=== PATIENT | male | born 1940 | race Caucasian/White ===

== ENCOUNTER 2017-06-04 16:58 | Emergency (ER) | payer MEDICARE, BC ==
[2017-06-04] MEDS ORDERED: Lidocaine 1% PF 5 ML VIAL ONE (17:38)
== END 2017-06-04 18:10 | disposition home or self-care (01) ==
LOC: ERS 16:58
DX: S01.01XA Laceration without foreign body of scalp, initial encounter (principal); W22.09XA Striking against other stationary object, initial encounter
CPT/HCPCS: 12001; J2001

== ENCOUNTER 2017-06-09 12:25 | Emergency (ER) | payer MEDICARE, BC | END 2017-06-09 14:10 | disposition home or self-care (01) | LOC: ERS 12:25 | DX: S01.81XD Laceration without foreign body of other part of head, subsequent encounter (principal); S01.01XD Laceration without foreign body of scalp, subsequent encounter; X58.XXXD Exposure to other specified factors, subsequent encounter ==

== ENCOUNTER 2017-10-25 10:39 | Outpatient (CLI) | payer MEDICARE, BC ==
--- NOTE | 2017-11-02 19:48 | EKG ---
Test Reason : Blood Pressure : / mmHG Vent. Rate : 059 BPM Atrial Rate : 059 BPM P-R Int : 186 ms QRS Dur : 088 ms QT Int : 420 ms P-R-T Axes : 082 031 044 degrees QTc Int : 415 ms Sinus bradycardia Otherwise normal ECG When compared with ECG of 11-MAR-2012 12:51, No significant change was found Confirmed by NAVDEEP FUNES (2) on 11/02/2017 7:48:41 PM Referred By: HUSSEIN Confirmed By:NAVDEEP FUNES
== END 2017-10-25 10:40 | disposition home or self-care (01) ==
LOC: LABBT 10:39
PROVIDERS: ATTEND Orthopaedic Surgery Hand Surgery
DX: Z01.812 Encounter for preprocedural laboratory examination (principal); Z01.818 Encounter for other preprocedural examination; M72.0 Palmar fascial fibromatosis [Dupuytren]
CPT/HCPCS: 93005; 93010

== ENCOUNTER → 2017-10-26 | Day surgery (SDC) | payer MEDICARE, BC ==
[2017-10-25 10:58] VITALS: BMI 20.5
[~2017-10-26] MED LIST: Bacitracin Zinc Ointment 30 gm TUBE ONE; Betamet Acet/Betamet Na Ph 30 MG/5 ML VIAL ONE; Bupivacaine 0.5% 10 ML VIAL ONE; CEFAZOLIN/Water 2 GM/20 ML SYRINGE ONE; Midazolam HCl 2 mg/2 ml Vial ONE
--- NOTE | 2017-10-27 14:51 | OP ---
PREOPERATIVE DIAGNOSIS: Right small finger Dupuytren's nodule, 8 mm. POSTOPERATIVE DIAGNOSIS: Right small finger Dupuytren's nodule, 8 mm. PROCEDURES PERFORMED: 1. Excisional biopsy right small finger, Dupuytren's nodule. 2. Neuroplasty, radial and ulnar digital nerves, right small finger in the area of the nodule. COMPLICATIONS: None. INJECTABLE: 1. Yes, Celestone dripped over the area of the nodule was found over cord. 2. A 12 mL of 0.5% Marcaine block were given proximal to the incision on level of 1 cm approximately metacarpophalangeal joint small finger, both sides of radial and ulnar. SPECIMEN SENT: Yes, the biopsied lesion. ESTIMATED BLOOD LOSS: 5 mL. TOURNIQUET TIME: 10 minutes. INDICATION: The patient had marked pain with contact over nodule and lost 10 degrees of motion in te cristina of extension at the MP joint small finger. No other digit involved. Primary concern was about t he nodule, not the underlying cord. He chose anesthesia that would be Anesthesia standby with only V ersed and we had to block him copiously. DESCRIPTION OF PROCEDURE: After we performed timeout and determined that the block was intact, we barrow d finished prepping and draping, the limb was exsanguinated, tourniquet inflated to 250 mmHg pressure . We made a 4-cm incision, two distal and 2 proximal to the nodule, carried down through skin and mills bcutaneous tissue, performing neuroplasty proximal to the incision to identify the nerves to protect them. The radial and ulnar nerves were found and protected. We then shelled out the small portion o f the nodule going towards the small finger PIP joint, all of the cord proximal to the nodule identif ied and removed, then we finished the neuroplasty, took the nodule out without damage to nerves, and then released the tourniquet. We irrigated with normal saline and held pressure until we found elect rocautery. We then did not use electrocautery. We then closed the wound with 4-0 nylon in simple pattern. Bulky dressing was applied. The patient left the operating room with a bulky dressing, no splint, and no evidence of anesthetic or operative complications.
== END ==
LOC: SDC 11:26
PROVIDERS: ATTEND Orthopaedic Surgery Hand Surgery
PROC: [UNRECOGNIZED PROCEDURE] (principal; 2017-10-26)
DX: M72.0 Palmar fascial fibromatosis [Dupuytren] (principal); H81.09 Meniere's disease, unspecified ear; Z87.891 Personal history of nicotine dependence; Z98.890 Other specified postprocedural states
CPT/HCPCS: 88304; J0702; J2250; J3490

== ENCOUNTER 2019-06-02 11:16 | Inpatient (IN) | payer MEDICARE, BC ==
[2019-06-02 11:47] LABS: #Basophils 0.1 thou/uL (0.0-0.2); #Monocytes 0.5 thou/uL (0.11-0.59); #Neutrophils 4.6 thou/uL (1.40-6.50); %Basophils 1.6 % (0.0-1.0); %Eosinophils 0.7 % (0.0-10.0); %Lymphocytes 16.5 % (21.0-51.0); %Monocytes 8.6 % (0.0-10.0); %Neutrophils 72.6 % (42.0-75.0); Hemoglobin 14.6 g/dL (14.0-18.0); Mean Corpuscular HGB CONC 33.6 g/dL (32.0-36.0); Mean Corpuscular Hemoglobin 32.3 pg (27.0-31.0); Mean Corpuscular Volume 96.3 fL (78.0-98.0); Mean Platelet Volume 9.2 fL (7.4-10.4); Platelet Count 134 thou/uL (130-400); RBC Distribution Width 12.3 % (11.5-14.5); Red Blood Cell (RBC) Count 4.53 mill/uL (4.70-6.10); White Blood Cell (WBC) Count 6.3 thou/uL (4.8-10.8)
[2019-06-02 11:55] LABS: INR-International Normal Ratio 1.1; PTT 27.6 SEC (22.9-36.1); Prothrombin Time 13.7 SEC (12.0-14.7)
[2019-06-02] MEDS ORDERED: Diltiazem 125 MG/25 ML ONE (11:58)
[2019-06-02 12:02] LABS: ALT (SGPT) 11 U/L (8-55); AST (SGOT) 22 U/L (5-34); Albumin 4.2 g/dL (3.4-4.8); Alkaline Phosphatase 79 U/L (40-110); Anion Gap 14 mmol/L (10-20); BUN (Urea Nitrogen) 9 mg/dL (8.4-25.7); Bilirubin, Total 1.2 mg/dL (0.2-1.2); CK (CPK) 54 U/L (30-200); Calc. Creatinine Clearance 0 mL/min (70-130); Calcium 9.4 mg/dL (7.8-10.44); Carbon Dioxide 27 mmol/L (23-31); Chloride 106 mmol/L (98-107); Estimated GFR-MDRD 88; Globulin 3.3 g/dL (2.4-3.5); Glucose 92 mg/dL (83-110); Potassium 4.3 mmol/L (3.5-5.1); Protein, Total 7.5 g/dL (5.8-8.1); Sodium 143 mmol/L (136-145)
--- NOTE | 2019-06-02 12:04 | RAD ---
Exam: Chest one view HISTORY:Pain and weakness Comparison: None FINDINGS: Lungs: No masses or consolidation. There is pulmonary hyperinflation. Cardiac silhouette: Normal size Pulmonary vessels: Normal Pleural Spaces: Clear Pneumothorax: None Osseous abnormalities: None of acuity. IMPRESSION: No focal consolidation.
[2019-06-02] MEDS ORDERED: Enoxaparin Sodium 80 MG/0.8 ML SYRINGE ONE (13:48)
[2019-06-02] MEDS ORDERED: Ondansetron ODT 4 MG TAB SL PRN (15:37)
[2019-06-02] MEDS ORDERED: Ondansetron PF 4 MG/2 ML Vial IVP PRN (15:37)
[2019-06-02] MEDS ORDERED: Diltiazem HCl 125 MG, Admixture Fee 1 EACH in Sodium Chloride 0.9% 100 ML IVPB SCH (15:45)
[2019-06-02 16:40] VITALS: BMI 19.8
[2019-06-02] MEDS ORDERED: Acetaminophen 325 MG TAB PO PRN (18:15)
[2019-06-02] MEDS ORDERED: Diltiazem 125 MG in Sodium Chloride 0.9% 100 ML IVPB SCH (18:30)
[2019-06-02] MEDS: Sodium Chloride 0.9% 1,000 ML IV SCH (18:39)
[2019-06-02 19:47] LABS: Troponin I 0.011 ng/mL (< 0.028)
[2019-06-02] MEDS ORDERED: Enoxaparin Sodium 80 MG/0.8 ML SYRINGE SC SCH (21:00)
--- NOTE | 2019-06-02 23:48 | HP ---
CHIEF COMPLAINT: Tachycardia. HISTORY OF PRESENT ILLNESS: This patient is a 78-year-old male, who is extremely fit. He has a history of atrial flutter or fibrillation about 12 years ago. The patient believes that this was triggered by some sleep apnea. He had surgery to address his sleep apnea and subsequently had atrial fibrillation ablation at [facility]. Since that time, he has done well. The patient continues to exercise riding a bicycle at least 3 times a week up to 10 miles at a time. He was ill about a month ago with a viral illness, which had some undulating fevers for several days. He continued to exercise and noted that his heart rate was in the 140s, which he believed was simply related to being ill or out of shape. He typically goes at least a mile before putting his hands on the monitor. It then ultimately occurred to him that perhaps he should check it beforehand, so he checked it before he got started recently and saw that his heart rate was already at 140, so he assumed he might be back in atrial fibrillation. He had some other occasional palpitations, and was able to check his carotid pulse and all of that led him to believe that he was likely back into atrial fibrillation. The patient's daughter is a doctor in [place] and she ultimately harassed him enough to have him present. He called his PCP's office today, but when he could not get in, was instructed to go to an urgent care facility, he was seen in the [facility] ER, where he was found to be in atrial fibrillation with a heart rate of 140. He was started on a Cardizem drip and his heart rate has subsequently resolved and the patient has essentially remained asymptomatic throughout. Denies any chest pain or shortness of breath. He was able to continue doing 10 miles on his bike in spite of being in what appears to be atrial flutter with a rapid ventricular response. REVIEW OF SYSTEMS: The patient reports he has had a bit more flatulence lately and occasionally in tiny amounts of fecal incontinence, but not something he consider significantly problematic. The patient is on a vegetarian diet, which he is actually more resembling a vegan diet and believes that may be partly contributory. PAST MEDICAL HISTORY: Again notable for the above mentioned atrial fibrillation or atrial flutter with ablation 12 years ago. He also had the obstructive sleep apnea. PAST SURGICAL HISTORY: Had a palatopharyngoplasty for obstructive sleep apnea, has had atrial fibrillation/flutter ablation, appendectomy, vasectomy, plantar fasciitis surgery, heel surgery, Achilles tendon surgery, cataract-ectomy. FAMILY HISTORY: Mother at 88 of what sounds like congestive heart failure, possibly related to rheumatic heart disease. Father had a history of alcohol abuse. He apparently perioperatively following a myocardial infarction with liver and kidney failure. SOCIAL HISTORY: The patient smoked for about 4 years from 20 to 24. He and his occasionally have a beer and glass of wine, again he is largely in a vegetarian diet. He uses no drugs. He is . He is full code. His is his surrogate decision maker and his daughter again is a physician in the [facility]. MEDICATIONS: None. ALLERGIES: NONE. PHYSICAL EXAMINATION: VITAL SIGNS: Temperature is 96.0, pulse 68, respirations 17, O2 saturation 97% on room air, BP is 109/59. GENERAL APPEARANCE: Age-appropriate male, in no distress. Awake, alert, pleasant, cooperative. HEENT: PERRL. No acute lesions. NECK: Supple and symmetric. No lymphadenopathy, JVD, or carotid bruits. HEART: Regular rate and rhythm without murmurs, gallops, or rubs. LUNGS: Clear to auscultation bilaterally. Good chest wall expansion and air exchange. ABDOMEN: Soft, nontender, and nondistended. Positive bowel sounds. No masses. No organomegaly. EXTREMITIES: No cyanosis, clubbing, or edema. PSYCHIATRIC: Normal affect and behavior. NEUROLOGIC: The patient has normal cognition. Cranial nerves grossly intact. No evidence of focal deficits. DIAGNOSTIC STUDIES: Chest x-ray is negative. EKG initially showed atrial fibrillation with rapid ventricular response. Currently, he appears to be in atrial flutter with controlled rate on the monitor. LABORATORY DATA: White count 6.3, hemoglobin 14.6, platelets 134. INR 1.1, PTT is 27.6, sodium 143, potassium 4.3, chloride 106, CO2 27, BUN 9, creatinine 0.84, glucose 92, AST 22, ALT 11, CK 54. IMPRESSION AND PLAN: 1. Atrial flutter with rapid ventricular response. The patient is currently rate controlled on diltiazem. He did receive a dose of Lovenox and he has been completely asymptomatic throughout, likely this patient has been getting his heart rate up in this range fairly consistently with his exercise and is therefore tolerating this rate enormously well. His blood pressure appears to be holding adequately. Discussed potential options with them. We will have Cardiology evaluate the patient given the amount of time this has been occurring, difficult to know whether he has been in flutter or if he has had some fibrillation during that time, but may have some opportunities for cardioversion, but we will defer this decisions to Cardiology. We will continue to check troponins and we will check a TSH in the morning. Continue with the [employer]. Job ID: [id number]
[2019-06-03] MEDS: Sodium Chloride 0.9% 1,000 ML IV SCH (02:10)
--- NOTE | 2019-06-03 08:39 | PDOC.HOSPP ---
- Subjective Encounter Date: 06/03/19 Encounter Time: 08:38 Subjective: Multiple sleep interruptions overnight. No other symptoms. - Objective Vital Signs & Weight: Vital Signs (12 hours) Temp Pulse Resp BP Pulse Ox 06/03/19 04:00 97.7 F 69 18 99/51 L 95 06/02/19 23:43 68 109/56 L Weight Weight 154 lb I&O: 06/02/19 06/03/19 06/04/19 06:59 06:59 06:59 Intake Total 1500 Balance 1500 Result Diagrams: 06/02/19 11:35 06/02/19 11:35 Hospitalist ROS - Medication Medications: Active Medications Generic Name Dose Route Start Last Admin Trade Name Freq PRN Reason Stop Dose Admin Sodium Chloride 10 ml 06/02/19 21:00 06/02/19 23:43 Flush - Normal Saline IVF Not Given Q12HR NAZ - Exam General Appearance: NAD, awake alert Heart: RRR, no murmur, no gallops, no rubs, normal peripheral pulses Respiratory: CTAB, no wheezes, no rales, no ronchi, normal chest expansion, no tachypnea, normal percussion Gastrointestinal: soft, non-tender, non-distended, normal bowel sounds, no palpable masses, no hepatomegaly, no splenomegaly, no bruit Extremities: no edema Skin: normal turgor Musculoskeletal: normal tone Psychiatric: normal affect, normal behavior, A&O x 3 Hosp A/P (1) Atrial flutter with rapid ventricular response Code(s): I48.92 - UNSPECIFIED ATRIAL FLUTTER Status: Acute - Plan Currently rate controlled and symptomatic. Cardizem gtt continues. Cardiology consult pending. They would like to consider going back to their EP in [place] should that be necessary. Echo pending.
[2019-06-03] MEDS ORDERED: FLU VACC TS2019-20(65YR UP)/PF 180 MCG/0.5 ML SYRINGE IM ONE (09:00)
[2019-06-03] MEDS ORDERED: Enoxaparin Sodium 80 MG/0.8 ML SYRINGE SC SCH (09:00)
[2019-06-03 09:02] LABS: Platelet Count 119 thou/uL (130-400)
[2019-06-03 09:11] LABS: Calc. Creatinine Clearance 76 mL/min (70-130); Estimated GFR-MDRD Greater than 90
[2019-06-03] MEDS: Apixaban 5 MG TAB PO SCH (20:28)
--- NOTE | 2019-06-03 22:14 | CON ---
DATE OF CONSULTATION: HISTORY OF PRESENT ILLNESS: Jignesh Santillan is a 78-year-old white male, who was admitted with atrial flutter. In August 2005, he was evaluated by Dr. Leigh. He was found to be in atrial fibrillation. It was felt this was probably due to obstructive sleep apnea. He was evaluated prior to undergoing palatopharyngoplasty. He underwent stress echo testing, exercised for 9 minutes and 12 seconds, he had no evidence of ischemia. After his ENT surgery, he underwent radiofrequency ablation of his atrial fibrillation at the [facility] in [place]. He states he has not had any recurrence since that time. Over the last month, he has noted that when he exercises and checks his pulse on the monitor, his heart rate is 140 per minute, which is much higher than what it has been in the past. He has noted this for the last month. He went to see his primary physician, but could not get in and was instructed to go to [facility]. He was found to be in atrial flutter with heart rate of 140 per minute and was transferred for further evaluation. He has been receiving Lovenox 1 mg/kg b.i.d. With this, he does not notice any palpitations, shortness of breath or chest discomfort and continued to exercise during the time that he had the heart rates in the 140s. At the present time, he is on a Cardizem drip, which has kept his heart rate at approximately 70 per minute. PAST MEDICAL HISTORY: Obstructive sleep apnea, atrial fibrillation ablation. OPERATIONS: Palatopharyngoplasty for obstructive sleep apnea, radiofrequency ablation of atrial fibrillation, appendectomy, vasectomy, plantar fasciitis surgery, heel surgery, Achilles tendon surgery and cataract removal. SOCIAL HISTORY: He smoked during his early 20s. He occasionally has a drink. MEDICATIONS: None. ALLERGIES: NONE. REVIEW OF SYSTEMS: A 12-point review of systems unremarkable. PHYSICAL EXAMINATION: VITAL SIGNS: 123/58, pulse of 70. HEENT: PERRL. NECK: Supple. CHEST: Clear. CARDIAC: S1 and S2 normal without any S3, S4, murmurs. NECK: Carotid upstrokes normal without bruits. ABDOMEN: Normal bowel sounds without tenderness or organomegaly. EXTREMITIES: Revealed no clubbing, cyanosis, or edema. NEUROLOGIC: Grossly intact. SKIN: Warm and dry. LABORATORY DATA: EKG on admission revealed atrial flutter with 2:1 block, heart rate of 120 per minute. IMAGING: Echocardiogram revealed an ejection fraction of 50% to 55% with mild left atrial enlargement, moderate mitral regurgitation, moderate aortic regurgitation and mild tricuspid regurgitation. IMPRESSION: 1. Atrial flutter, apparently with onset approximately 1 month ago with heart rate jumping to 140 per minute whenever he would exercise. 2. History of radiofrequency ablation of atrial fibrillation 12 years ago. 3. History of obstructive sleep apnea, undergoing ENT surgery for that. 4. Moderate mitral regurgitation. RECOMMENDATIONS: Mr. Santillan will be transitioned to Eliquis 5 mg b.i.d. Consideration could be given to electrical cardioversion; however, there is a high chance of recurrence of this arrhythmia with that. Overall, I would recommend radiofrequency ablation of the flutter circuit. The patient is somewhat undecided how he wishes to proceed and we will further discuss the issue tomorrow. Job ID: [id number] MTDD
[2019-06-04] MEDS: Apixaban 5 MG TAB PO SCH (09:51)
[2019-06-04 10:25] LABS: Hemoglobin 14.8 g/dL (14.0-18.0); Platelet Count 137 thou/uL (130-400)
[2019-06-04 10:53] LABS: Calc. Creatinine Clearance 73 mL/min (70-130); Estimated GFR-MDRD Greater than 90
[2019-06-04 12:57] VITALS: TEMP 97.8
[2019-06-04 15:42] VITALS: BP 110/56
--- NOTE | 2019-06-05 12:17 | DIS ---
DATE OF ADMISSION: 06/02/2019 DATE OF DISCHARGE: 06/04/2019 DISCHARGE DIAGNOSES: Atrial flutter with rapid ventricular response. HISTORY OF PRESENT ILLNESS: This patient is a 78-year-old male with a history of atrial fibrillation with flutter and ablated about 12 years prior. The patient was doing well. Diet was exceptionally healthy diet and exercise regimen, which he was riding his bike. This patient had a cardiac ablation 12 years prior, was doing well until several days prior to admission. The patient rides his bike routinely and uses the CAM monitors to demonstrate his heart rate. The patient realized that after recent febrile illness that his heart rate was running a bit higher. He felt like it was likely related to the illness for possibly being a bit out of shape. However, ultimately, he checked it before starting his ride and he realized his heart rate was already at 140. He recognized that this likely was related to recurrence of his atrial arrhythmia and ultimately he had tried to present to his primary care physician's office. When he was unable to get him, he was referred to [facility] Emergency Department. There, the patient had EKG, which confirmed he was in atrial flutter with a rapid ventricular rate. He was given Cardizem and his rate converted to a 3:1 conduction rhythm with a heart rate around 68. He was subsequently transferred to our facility and his labs were unremarkable. CBC and chemistries were normal. HOSPITAL COURSE: The patient was admitted to the hospital. He had a repeat troponin, which was unremarkable. TSH was normal at 4.1. He maintained a Cardizem drip at 5 mg/hour and his heart rate remained fairly steady at 68. He had an echocardiogram performed, which revealed an ejection fraction of 50% to 55% with moderate mitral regurgitation, moderate aortic regurgitation and mild tricuspid regurgitation. He was seen in consultation by Cardiology and converted from Lovenox to p.o. Eliquis. They discussed the possibility of cardioversion. However, there is risk of recurrence with that that is significant and ablation was recommended. The patient desired to follow up with his bellows tester and will like to have that procedure performed. Therefore, he was converted to the p.o. Cardizem 30 mg p.o. q.i.d. and the drip was subsequently discontinued. With that, the patient was felt to be stable for discharge home. PHYSICAL EXAMINATION: VITAL SIGNS: Temperature was 97.8, pulse 68, respirations 17, O2 saturation 99% on room air, BP was 110/56. GENERAL: He was awake and alert. HEART: Regular rate and rhythm. LUNGS: Clear bilaterally. ABDOMEN: Benign. EXTREMITIES: No edema. DISPOSITION: The patient is discharged to home. He will be on Eliquis 5 mg p.o. b.i.d., diltiazem 30 mg p.o. q.i.d. FOLLOWUP: He is to avoid excessive exercise until he is able to follow up with his bellows tester, whom he will call in the morning. He should also follow up with Dr. Rito Leal, his primary care provider in 7 days. His activity is otherwise as tolerated. He has no new dietary restrictions. He can return to the hospital should he have any problems or feel the need to do so. TIME SPENT: Total time spent in discharge activity was 38 minutes. Job ID: [id number]
--- NOTE | 2019-06-06 22:46 | PQF ---
[employer] Portfolio Manager Crystal Reports Winform ViewerTERRANCE CHOUDHARY JR BAL VELAZQUEZ MD [id number] [facility]-258 [id number] CLINICAL DOCUMENTATION CLARIFICATION FORM: POST DISCHARGE Addendum to original discharge summary date: ____ Late entry note date: __ DATE: 06/06/2019 ATTN:BAL VELAZQUEZ MD Please exercise your independent, professional judgment in responding to the clarification form. Clinical indicators are provided on the bottom of this form for your review Please check appropriate box(s): BMI > 19 with associated diagnosis of: (check one) [ ] Underweight [ x ] Other diagnosis __Exceptionally healthy [ ] Unable to determine In addition, please specify: Present on Admission (POA): [x ] Yes [ ] No [ ] Unable to Determine For continuity of documentation, please document condition throughout progress notes and discharge summary. Thank You. BMI < 18.5Under weight = 18.5 - 24.9Healthy = 25.0 - 29.9Slightly Overweight = 30.0 - 34.9Obese/Class I = 35.0 - 39.9Severely Obese/Class II = 40.0 and OverMorbidly Obese/Class III CLINICAL INDICATORS - SIGNS / SYMPTOMS / LABS - BMI: 19.8- FNS assessment, 06/02 - Height: 1.88m-FNS assessment, 06/02 - current weight: 69.853 kg-FNS assessment, 06/02 - Weakness- ED record, 06/02, Payal Garica MD RISK FACTORS -PMH: 3-4 foot surgeries- ED record, 06/02, Payal Garcia MD -PMH: appendectomy- ED record, 06/02, Payal Garcia MD -Atrial fibrillation- DS, 06/04, BAL VELAZQUEZ MD TREATMENTS: - Healthy diet and exercise regimen-DS, 06/04, BAL VELAZQUEZ MD [employer] Portfolio Manager [employer] Winform Viewer (This form is maintained as a part of the permanent medical record) 2014 [employer]. All Rights Reserved Sanna Ruano [not provided] [not provided] MTDD
== END 2019-06-04 19:01 | disposition home or self-care (01) | DRG 310 ==
LOC: SCSER 11:16 → 2NO 12:30
PROVIDERS: ADMIT Internal Medicine; ATTEND Internal Medicine
DX: I48.92 Unspecified atrial flutter (principal); G47.33 Obstructive sleep apnea (adult) (pediatric); I34.0 Nonrheumatic mitral (valve) insufficiency; R40.2412 Glasgow coma scale score 13-15, at arrival to emergency department; Z90.49 Acquired absence of other specified parts of digestive tract
CPT/HCPCS: 36415; 71045; 80053; 82550; 82565; 84443; 84484; 85014; 85018; 85025; 85049; 85610; 85730; 93005; 93306; J1650; J3490

== ENCOUNTER 2019-07-28 09:41 | Outpatient (CLI) | payer MEDICARE, BC ==
[2019-07-28] MEDS ORDERED: Magnevist 469MG/ML 20 ML VIAL ONE (10:59)
--- NOTE | 2019-07-28 11:17 | MRI ---
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 FINDINGS: There is no obstructive hydrocephalus. There is no midline shift or any other evidence of mass effect . There is no extra-axial fluid collection. There are mild chronic ischemic white matter changes due to microvascular atherosclerosis. There is otherwise no major intra-axial signal abnormality, abn ormal enhancement, mass, recent hemorrhage, or restricted diffusion. There is no abnormal enhancement, mass, or morphologic abnormality, involving the cerebellopontine an gles, 7th-8th nerve complexes, internal auditory canals, cochleae, vestibules, vestibular aqueducts, or semicircular canals. The left parotid gland is very small, with only a small amount of tissue at the superficial lobe. There is absence of tissue in the deep lobe. IMPRESSION: 1) mild chronic ischemic white matter changes. 2) no other abnormality identified involving brain and inner ear structures. 3) very small left parotid gland, either due to previous surgical subtotal resection or atrophy.
== END 2019-07-28 09:42 | disposition home or self-care (01) ==
LOC: BICMRI 09:41
PROVIDERS: ATTEND Specialist
DX: H91.22 Sudden idiopathic hearing loss, left ear (principal)
CPT/HCPCS: 70553; 82565; A9579